=== PATIENT | female | born 1960 | race Hispanic/Latino ===

== ENCOUNTER 2022-09-01 13:04 | Emergency (ER) | payer OTHER, MEDICARE ==
[~2022-09-01] VITALS: Ht 157.5 cm; Wt 95.3 kg
[2022-09-01 14:13] LABS: BASOPHILS % (AUTO) 0.2 % (0.0-5.0); EOSINOPHILS % (AUTO) 0.3 % (0.0-8.0); HEMATOCRIT 37.8 % (36-48); LYMPHOCYTES % (AUTO) 14.5 % (21.0-51.0); MEAN CORPUSCULAR HEMOGLOBIN 28.7 pg (27.0-33.0); MEAN CORPUSCULAR HGB CONC 33.9 g/dL (32.0-36.0); MEAN CORPUSCULAR VOLUME 84.8 fL (79-99); NEUTROPHILS % (AUTO) 75.5 % (40.0-77.0); PLATELET COUNT (AUTO) 270 K/uL (130-400); RED BLOOD CELL COUNT(AUTO) 4.46 MIL/uL (4.00-5.50); RED CELL DISTRIBUTION WIDTH 13.2 % (11.0-15.5); WHITE BLOOD COUNT (AUTO) 10.9 K/uL (4.8-10.8)
[2022-09-01 14:20] LABS: ALBUMIN 3.9 g/dL (3.5-5.0); CREATININE 1.5 mg/dL (0.5-1.5); POTASSIUM 3.6 mmol/L (3.5-5.1)
[2022-09-01 14:24] LABS: TOTAL PROTEIN, SERUM 8.4 g/dL (6.0-8.3)
[2022-09-01] MEDS ORDERED: ONDANSETRON 4MG INJ IVP ONE (14:30)
[2022-09-01] MEDS ORDERED: 0.9%NACL 1000ML 1,000 ML IV ONE ×2 (14:30)
[2022-09-01 14:52] LABS: APPEARANCE,URINE TURBID (CLEAR); BILIRUBIN,URINE NEGATIVE (NEGATIVE); COLOR,URINE LIGHT-ORANGE (YELLOW); GLUCOSE, URINE (UA) NEGATIVE (NEGATIVE); KETONES,URINE NEGATIVE (NEGATIVE); LEUKOCYTE ESTERASE ,URINE 500 Leu/uL (NEGATIVE); NITRATE,URINE 1+ (NEGATIVE); PROTEIN,URINE 30 mg/dL (NEGATIVE); UROBILINOGEN,URINE 0.2 mg/dL (0.2-1.0)
[2022-09-01] MEDS ORDERED: ONDANSETRON 4MG INJ ONE (14:57)
[2022-09-01] MEDS ORDERED: 0.9%NACL 1000ML 2,000 ML IV ONE (14:57)
[2022-09-01 15:03] LABS: BACTERIA,URINE MANY /HPF (None Seen); MUCUS,URINE MANY LPF (None Seen); SQUAMOUS EPITHELIAL CELL,UR MANY /HPF (0-2); WBC,URINE TNTC /HPF (0-1); YEAST,URINE BUDDING MANY /HPF (None Seen)
[2022-09-01 15:17] LABS: ABG OXYGEN SATURATION 17.5 % (95.0-99.0); BASE EXCESS,VENOUS BLOOD GAS 3.1 (-2.0-3.0); HCO3,VENOUS BLOOD GAS 27.7 (21.0-28.0); PCO2,VENOUS BLOOD GAS 42 (32-45); PH,VENOUS BLOOD GAS 7.435 (7.350-7.450)
[2022-09-01] MEDS ORDERED: CEFTRIAXONE 1G VIAL IVP ONE (15:30)
[2022-09-01] MEDS ORDERED: CEFTRIAXONE 1G VIAL ONE (16:06)
[2022-09-01] MEDS ORDERED: CEPH500B PO (17:09)
[2022-09-01 17:14] VITALS: BP 139/80
== END 2022-09-01 17:23 | disposition home or self-care (01) ==
LOC: EDH 13:04
DX: N39.0 Urinary tract infection, site not specified (principal); E86.0 Dehydration; E11.9 Type 2 diabetes mellitus without complications; E78.00 Pure hypercholesterolemia, unspecified; I10 Essential (primary) hypertension
CPT/HCPCS: 99284; 96374; 96361; 96375; 80053; 82803; 83690; 85025; 87077; 87088; 87186; 81001; 36415; 36600; J7030; J0696; J2405

== ENCOUNTER → 2023-08-18 | Outpatient (CLI) | payer OTHER, MEDICARE ==
[~2023-08-18] MED LIST: CEPH500B PO
== END | disposition home or self-care (01) ==
LOC: RAH 13:55
PROVIDERS: ATTEND Internal Medicine
DX: Z12.31 Encounter for screening mammogram for malignant neoplasm of breast (principal); R92.1 Mammographic calcification found on diagnostic imaging of breast
CPT/HCPCS: 77067